=== PATIENT | male | born 1980 | race Caucasian/White ===

== ENCOUNTER 2021-10-30 18:21 | Emergency (ER) | payer SELFPAY ==
[~2021-10-30 18:21] MED LIST: LEVOFLOXACIN500 MG PO; LISINOPRIL10 MG PO; VENTOLIN HFA 66.7 GM INH
== END 2021-10-30 19:07 | disposition home or self-care (01) ==
LOC: ER1 18:21
DX: U07.1 COVID-19 (principal); J06.9 Acute upper respiratory infection, unspecified
CPT/HCPCS: 99283; U0003

== ENCOUNTER 2022-02-20 16:07 | Inpatient (IN) | payer OTHER ==
[~2022-02-20] VITALS: Ht 162.6 cm; Wt 122.5 kg
[2022-02-20 16:32] LABS: HEMOGLOBIN 16.5 gm/dl (14.0-17.5); RED BLOOD COUNT 5.31 M/UL (4.20-5.50); WHITE BLOOD COUNT 15.6 K/UL (4.5-11.0)
[2022-02-20 16:55] LABS: BUN/CREATININE RATIO 22 (0-10)
[2022-02-21 06:59] LABS: WHITE BLOOD COUNT 11.9 K/UL (4.5-11.0)
[2022-02-21 07:04] LABS: RED BLOOD COUNT 4.42 M/UL (4.20-5.50)
[2022-02-21 08:00] LABS: BUN/CREATININE RATIO 16 (0-10)
[2022-02-21] MEDS ORDERED: LEVOFLOXACIN500 MG PO (10:10)
[2022-02-21] MEDS ORDERED: PROAIR HFA8.5 GM INH (10:10)
[2022-02-21 14:54] LABS: BUN/CREATININE RATIO 16 (0-10)
== END 2022-02-21 16:09 | disposition home or self-care (01) | DRG 177 ==
LOC: ER1 16:07 → MED SURG 4 17:21 → CDU 17:21 → MED SURG 4 20:03
PROVIDERS: Emergency Medicine; ADMIT Internal Medicine
DX: J69.0 Pneumonitis due to inhalation of food and vomit (principal); J96.01 Acute respiratory failure with hypoxia; M51.06 Intervertebral disc disorders with myelopathy, lumbar region; Z20.822 Contact with and (suspected) exposure to COVID-19; R65.10 Systemic inflammatory response syndrome (SIRS) of non-infectious origin without acute organ dysfunction; E87.5 Hyperkalemia; J44.9 Chronic obstructive pulmonary disease, unspecified; G89.29 Other chronic pain; M43.16 Spondylolisthesis, lumbar region; M47.896 Other spondylosis, lumbar region; F17.210 Nicotine dependence, cigarettes, uncomplicated; E11.9 Type 2 diabetes mellitus without complications; M51.16 Intervertebral disc disorders with radiculopathy, lumbar region; M54.9 Dorsalgia, unspecified; Z98.890 Other specified postprocedural states
CPT/HCPCS: 36415; 36600; 71045; 72100; 80048; 80053; 82550; 82553; 82803; 83605; 83735; 83880; 84484; 85025; 85027; 86140; 87040; 93005; 94640; 94664; 94760; 96361; 96374; 96375; 99285; J1650; J2543; J3370; J7070